=== PATIENT | male | born 1970 | race Caucasian/White ===

== ENCOUNTER 2024-05-07 10:19 | Day surgery (SDC) | payer OTHER, SELFPAY ==
[2024-04-24 09:36] VITALS: BMI 35.5
[2024-04-30 14:21] VITALS: BMI 34.3
[2024-05-07 10:38] VITALS: BMI 34.7
[2024-05-07 10:41] VITALS: BP 141/101; PULSE 63; RESP 16; TEMP 36.4; O2SAT 99
[2024-05-07] MEDS: LACTATED RINGERS 1,000 ML 150 ML IV CONT (10:54)
--- NOTE | 2024-05-07 11:03 | PM.HPGS ---
History of Present Illness History of Present Illness Consent: Risks, benefits, and alternatives have been discussed and questions answered. Patient agrees to proceed with procedure. Chief complaint: Neoplasm Screening Narrative: Chidi Moralez is a 54 year old male presents for screening colonoscopy. Patient has current weight appetite and is are normal. Patient denies abdominal pain. He has had no bleeding. Family history is noncontributory. Review of Systems Review of Systems: All systems reviewed & are unremarkable except as noted in HPI and below PMFSH Social History Social History Smoking status: Never smoker Alcohol intake: current Substance use: never Substance use type: does not use Living arrangements: with family Spiritual care concerns: No Meds Home Medications and Allergies Home Medications Medication Instructions Recorded Confirmed Type milk thistle 175 mg tablet 175 mg PO DAILY 04/30/24 05/07/24 History naproxen sodium 220 mg capsule 220 mg PO DAILY 04/30/24 05/07/24 History (Aleve) Allergies Allergy/AdvReac Type Severity Reaction Status Date / Time No Known Allergies Allergy Verified 05/07/24 10:32 Vital Signs Vital Signs - 24 hr 05/07/24 10:41 Temperature 97.6 F Pulse Rate 63 Respiratory Rate 16 Blood Pressure 141/101 H Pulse Oximetry 99 Oxygen Delivery Room Air Exam Narrative: Physical exam reveals patient to be alert. Vital signs stable. HEENT is unremarkable. Patient is anicteric. Is are clear to auscultation and percussion is without murmur or extra sounds. Abdomen bowel sounds are present soft nontender with no organomegaly. Digital external rectal exam is normal. Assessment and Plan Assessment and plan (1) Screen for colon cancer: Code(s): Z12.11 - Encounter for screening for malignant neoplasm of colon Status: Acute Assessment and Plan: Patient presents today for colon cancer screening. Further recommendations may be given after endoscopy.
--- NOTE | 2024-05-07 11:20 | P.PNAN_ITS ---
Anes - Initial Pre Proc Eval Procedure: Operation Date: 05/07/24 12:00 Proposed Procedures p Screening Colonoscopy - Juan Pablo Barillas MD Date/Time: 05/07/24 11:20 Surgeon: Juan Pablo Barillas MD Pre Op Diagnosis: Neoplasm Screening Patient Data Age: 54 Gender: M Height: 1.85 m Weight: 119.3 kg Last Vital Signs Temp 36.4 C 05/07/24 10:41 Pulse 63 05/07/24 10:41 Resp 16 05/07/24 10:41 BP 141/101 H 05/07/24 10:41 Pulse Ox 99 05/07/24 10:41 O2 Del Method Room Air 05/07/24 10:41 Allergies Allergy/AdvReac Type Severity Reaction Status Date / Time No Known Allergies Allergy Verified 05/07/24 10:32 Home Medications Medication Instructions Recorded Confirmed Type milk thistle 175 mg tablet 175 mg PO DAILY 04/30/24 05/07/24 History naproxen sodium 220 mg capsule 220 mg PO DAILY 04/30/24 05/07/24 History (Aleve) Patient hx anesthesia problems: none Family hx anesthesia problems: none Results Review: All pre-operative results and documents have been reviewed as part of the pre- operative evaluation. [facility] Past Medical History Medical History (Updated 05/07/24 @ 11:20 by Manas Boyce MD) Obesity Social History Social History Smoking status: Never smoker Alcohol intake: current Substance use: never Substance use type: does not use Living arrangements: with family Spiritual care concerns: No Anes - Eval Final PreProcedure Day of Procedure 05/07/24 11:20 Patient weight: obese Heart: regular rate and rhythm Lungs: clear to auscultation Airway: Mallampati scale class II Neurological: alert and oriented Last oral intake: >/= 8 hours ASA classification: II Emergent: no Anesthetic plan: proceed Anesthesia type and monitoring: general GIVS and standard monitoring Results Review: All pre-operative results and documents have been reviewed as part of the pre- operative evaluation. Informed Consent: The patient's anesthetic plan and its attendant risks and benefits were discussed with the patient/family/POA. Questions were solicited and answers provided to the satisfaction of the patient/family/POA.
[2024-05-07 12:14] VITALS: BP 133/90; PULSE 71; RESP 16; O2SAT 99
[2024-05-07 12:24] VITALS: BP 139/91; PULSE 64; RESP 16; O2SAT 97
[2024-05-07 12:34] VITALS: BP 140/105; PULSE 60; RESP 16; O2SAT 99
--- NOTE | 2024-05-07 12:34 | WPDANESPN ---
Anes - Prog Note Post-Op Date/Time: 05/07/24 12:34 Cardiovascular status: normal Respiratory status: normal Airway patency: baseline Mental status: baseline Post-Op hydration status: normal Vital Signs: Last Vital Signs Temp 36.4 C 05/07/24 10:41 Pulse 64 05/07/24 12:24 Resp 16 05/07/24 12:24 BP 139/91 H 05/07/24 12:24 Pulse Ox 97 05/07/24 12:24 O2 Del Method Room Air 05/07/24 12:24 Pain Score (VAS): 0/10 I/O: Intake & Output 05/06/24 05/07/24 05/07/24 23:59 07:59 15:59 Intake Total 550 Balance 550 Patient Feedback: Patient satisfied with anesthetic care.
== END 2024-05-07 12:40 | disposition home or self-care (01) ==
PROVIDERS: PCP Family Medicine; Visit Provider Internal Medicine Gastroenterology
PROC: 0DJD8ZZ Inspection of Lower Intestinal Tract, Via Natural or Artificial Opening Endoscopic (ICD-10-PCS; CPT 45378; principal; 2024-05-07 12:00)
DX: Z12.11 Encounter for screening for malignant neoplasm of colon (principal); K57.30 Diverticulosis of large intestine without perforation or abscess without bleeding; K64.8 Other hemorrhoids
CPT/HCPCS: 45378